=== PATIENT | female | born 1935 | race Caucasian/White ===

== ENCOUNTER 2022-03-16 13:19 | Outpatient (RCR) | payer MEDICARE, OTHER, SELFPAY ==
--- OUTSIDE RECORDS SUMMARY | 2022-02-20 11:09 | XMS_ITS | Continuity of Care Document ---
:1935 Author Care Team Providers Name Role Phone MD Johnson Laguna Admitting Physician DO Mandeep A Primary Care Physician Allergies, Adverse Reactions, Alerts Allergen Type Severity Reaction Last Updated Verified Status Codeine Allergy Unknown June Yes Active 2019 Doxycycline Allergy Unknown June Yes Active 2019 Hydromorphone Allergy Unknown June Yes Active 2019 Imipramine Allergy Unknown June Yes Active 2019 Morphine Allergy Unknown June Yes Active 2019 Penicillin v Allergy Unknown June Yes Active 2019 Calcitriol Allergy Unknown June Yes Active 2019 Beta-carotene Allergy Unknown June Yes Active 2019 Gabapentin Allergy Unknown June Yes Active 2019 Levofloxacin Allergy Unknown June Yes Active 2019 Infliximab Allergy Unknown June Yes Active 2019 Tocilizumab Allergy Unknown June Yes Active 2019 IMIPRAMINE HCL Allergy Unknown June No Activ e 2020 SULFA Allergy Unknown June No Active (SULFONAMIDE 2020 ANTIBIOTICS) Social History Smoking Status Status Start Date End Date Date of Observat ion Tobacco smoking August 13 021 consumption unknown 8:40am (finding) Observation Status Observation Response Date of Response History provided by Patient July 08, 2021 5 :00am Family Member July 08, 2021 5 :00am Where do you live? Own home/apt July 08, 2021 5 :00am With whom do you live? Adult children July 08 5:00am Additional Data Assigned Sex Female Problems Active Problems Medical Problem Onset Date Status Weakness Active Poor appetite Active Myelodysplasia (myelodysplastic Active syndrome) Neutropenic fever Active History of pulmonary embolism Active Rheumatoid arthritis Active On prednisone therapy Active Hyponatremia Active Hiatal hernia Active Elevated blood pressure reading Active Anemia Active Cough Active Medications Medication Status Dose Units Route Directions Qty Days Start End Ins tructions Date Date Acetaminophe Active 650 MG PO Three Times n A Day Bisacodyl Active 5 MG PO Daily as (Ducodyl) 5 needed Mg TAB Fluticasone Active 2 SPRAY EACH Daily 1 Propionate NOSTR (Nasal) (Flonase Allergy Relief) 50 Mcg/Act SPR Mirtazapine Active 7.5 MG PO Bedtime 30 Multiple Active 1 TABLET PO Daily December Vitamins W/ 24, Minerals 2021 (Centrum 2:07pm Silver) TAB Prednisone Active 2 MG PO Daily Psyllium Active 1 TBS PO Daily as (Metamucil) needed 28.3 % POW Rivaroxaban Active 10 MG PO Daily (Xarelto) 10 Mg TAB Venlafaxine Active 150 MG PO Daily Hcl (Effexor Xr) 75 Mg CAP Acetaminophe Disconti 325-65 MG PO Every 4 Septem NO MORE THAN n (Tylenol) nued 0 Hours as gerry 4000 MG/DAY 325 Mg TAB needed 2020 1:29pm Acetaminophe Disconti 500-10 MG PO Every 6 March NO MORE THAN n (Tylenol nued 00 Hours as 3999 M G/DAY Extra needed 2020 Strength) 12:08p 500 Mg TAB m Aspirin Disconti 81 MG PO Daily October nued , 2020 2:15pm 11:24a m Cholecalcife Disconti Unknow PO Daily December rol (Vitamin nued n Dose 24, D) Unknown 2021 Strength TAB 2:06pm Cholecalcife Disconti 400 UNIT PO Daily Septem On hold per rol (Vitamin nued gerry patient D 400) 400 , Unit CHW 2020 1:29pm Ciprofloxaci Disconti 250 MG PO Twice A Day 180 90 Decembe Ju ly n Hcl nued r , 2019 4:06pm 2:18pm Ciprofloxaci Disconti 250 MG PO Twice A Day Dece mb n Hcl nued er 2019 10:05a m Ciprofloxaci Disconti 250 MG PO Twice A Day 180 90 Decembe De cemb n Hcl nued r , er 2019 10, 3:53pm 2019 4:06pm Lenalidomide Disconti 2.5 MG PO Daily December plea se take (Revlimid) 5 nued , , 21 days out Mg CAP 2020 2020 of 28 days 11:24am 3:06pm Lenalidomide Disconti 5 MG PO Daily October plea se take (Revlimid) 5 nued , , 21 days out Mg CAP 2020 2020 of 28 days 2:15pm 11:24a m Loperamide Disconti 2 MG PO December Hcl nued , (Imodium) 2 2020 Mg CAP 11:44a m Magic Disconti 5 ML PO Four Times November SWISH AND SPIT Mouthwash nued Daily as , december COM POUND IF FIRST PRODUCT NOT COVERED (Lidocaine/B needed 2020, enadryl/Maal 1:13pm 2020 ox) 1:29pm (First-Mouth wash Blm) Blm LAMINE Metoprolol Disconti 25 MG PO Daily March ho ld Succinate nued , (Toprol Xl) 2020 25 Mg TABCR 12:08p m Mirtazapine Disconti 7.5 MG PO Bedtime Novemb (Remeron) 15 nued er Mg TAB 2019 12:47p m Ondansetron Disconti 4 MG PO Every 6 October Hcl nued Hours as r , (Ondansetron needed 2020 2021 Odt) 4 Mg 10:28am 1:34pm TAB Ondansetron Disconti 8 MG PO Three Times 26 November Hcl nued A Day as , (Ondansetron needed 2021 Odt) 8 Mg 1:34pm TAB Oyster Shell Disconti 500 MG PO Daily On hold (Calcium) nued gerry 500 Mg TAB 2020 1:29pm Potassium Disconti 20 MEQ PO Daily With 30 Novembe Januar nued Am Meal r 12th, y 2020, 10:28am 2021 2:02pm Probiotic Disconti 1 CAP PO Daily Decemb Product nued er (Probiotic) 2019 10:05a m Tramadol Hcl Disconti 50 MG PO Every 6 30 Decemb nued Hours as er needed 2019 2:12pm Tramadol Hcl Disconti 50-100 MG PO Q6h Prn Novemb MAX 400 (Ultram) 50 nued er MG/DAY Mg TAB 2019 12:47p m Relevant Diagnostic Tests and/or Laboratory Data Laboratory Results Test Date/Time Result Interpretation Reference Result Comment Performing Range Site White Blood February 16, 1.74 5.00-10.00 [facility] Count 2021 [address] [facility] 1:04pm [place] [address] Red Blood February 16, 3.17 3.90-5.03 [facility] Count 2021 [address] [facility] 1:04pm [place] [address] Hemoglobin February 16, 9.9 12.0-15.5 [facility] 2021 [address] [facility] 1:04pm [place] [address] Hematocrit February 16, 31.0 34.9-44.5 [facility] 2021 [address] [facility] 1:04pm [place] [address] Mean February 16, 98 82-98 [facility] Corpuscular 2021 1999 [facility] Volume 1:04pm [place] [address] Mean February 16, 31 27-34 [facility] Corpuscular 2021 [address] [facility] Hemoglobin 1:04pm [place] [address] Mean February 16, 32 32-36 [facility] Corpuscular 2021 [address] [facility] Hemoglobin 1:04pm [place] [address] Concent Platelet Count February 16, 244 150-450 [facility] 2021 [address] [facility] 1:04pm [place] [address] RDW February 16, 22.5 11.5-15.3 [facility] Coefficient of 2021 [address] [facility] Variation 1:04pm [place] [address] Neutrophils February 16, 14.4 50.0-70.0 [facility] (%) (Auto) 2021 [address] [facility] 1:04pm [place] [address] Lymphocytes February 16, 64.4 25.0-45.0 [facility] (%) (Auto) 2021 [address] [facility] 1:04pm [facility] [address] Monocytes (%) February 16, 16.1 0.00-11.0 [facility] (Auto) 2021 [address] [facility] 1:04pm [place] [address] Eosinophils February 16, 1.7 0.0-7.0 [facility] (%) (Auto) 2021 [address] [facility] 1:04pm [place] [address] Basophils (%) February 16, 3.4 0.0-3.0 [facility] (Auto) 2021 [address] [facility] 1:04pm [place] [address] Immature February 16, 0.0 [facility] Granulocyte % 2021 1999 [facility] (Auto) 1:04pm [place] [address] Neutrophils # February 16, 0.25 1.70-7.00 [facility] (Auto) 2021 [address] [facility] 1:04pm [place] [address] Lymphocytes # February 16, 1.12 0.90-2.90 [facility] (Auto) 2021 [address] [facility] 1:04pm [place] [address] Monocytes # February 16, 0.28 0.30-0.90 [facility] (Auto) 2021 [address] [facility] 1:04pm [place] [address] Eosinophils # February 16, 0.03 0.00-0.50 [facility] (Auto) 2021 [address] [facility] 1:04pm [place] [address] Basophils # February 16, 0.06 0.00-0.20 [facility] (Auto) 2021 [address] [facility] 1:04pm [place] [address] Immature February 16, 0.00 [facility] Granulocyte # 2021 [address] [facility] (Auto) 1:04pm [place] [address] Urine Color Kristina YELLOW YELLOW [facility] 2021 [facility] 2:18pm [place] [address] Urine Kristina CLEAR CLEAR [facility] Appearance 2021 [facility] 2:18pm [place] [address] Urine Glucose Kristina NEGATIVE NEGATIVE [facility] (UA) 2021 [facility] 2:18pm [place] [address] Urine Kristina NEGATIVE NEGATIVE [facility] Bilirubin 2021 [facility] 2:18pm [place] [address] Urine Ketones August NEGATIVE NEGATIVE [facility] 2021 [facility] 2:18pm [place] [address] Urine Specific Kristina 1.025 1.000-1.03 [facility] [place] 2021 0 [address] [facility] 2:18pm [place] [address] Urine pH August 6.5 5.0 - 8.5 [facility] 2021 [facility] 2:18pm [place] [address] Urine Protein Kristina NEGATIVE NEGATIVE [facility] 2021 [facility] 2:18pm [place] [address] Urine Kristina 1.0 0.2 [facility] Urobilinogen 2021 [facility] 2:18pm [place] [address] Urine Nitrite Kristina NEGATIVE NEGATIVE [facility] 2021 [facility] 2:18pm [place] [address] Urine Blood Kristina Trace-int NEGATIVE [facility] 2021 [facility] 2:18pm [place] [address] Urine Kristina NEGATIVE NEGATIVE [facility] Leukocyte 2021 [facility] Esterase 2:18pm [place] [address] Urine WBC Kristina 2-5 0-2 [facility] 2021 [facility] 2:18pm [place] [address] Urine RBC August 2-5 0-2 [facility] 2021 [facility] 2:18pm [place] [address] Urine Other Kristina 0 0 [facility] Casts 2021 [facility] 2:18pm [place] [address] Urine Other Kristina 0 0 [facility] Crystals 2021 [facility] 2:18pm [place] [address] Urine Squamous Kristina 0 0-FEW [facility] Epithelial 2021 [facility] Cells 2:18pm [place] [address] Urine Bacteria Kristina RARE 0-FEW [facility] 2021 [facility] 2:18pm [place] [address] Urine Mucus Kristina 0 0 [facility] 2021 [facility] 2:18pm [place] [address] Urine Kristina 0 0 [facility] Amorphous 2021 [facility] Sediment 2:18pm [place] [address] Urine Other Kristina 0 [facility] Sediment 2021 [facility] 2:18pm [place] [address] Random Glucose February 02, 120 60-115 [facility] 2021 [address] [facility] 1:35pm [place] [address] Blood Urea February 02, 22 7-30 [facility] Nitrogen 2021 [address] [facility] 1:35pm [place] [address] Creatinine February 02, 0.8 0.5-1.5 [facility] 2021 [address] [facility] 1:35pm [place] [address] Estimated February 02, Patient [facility] Creatinine 2021 height/weight [address] [facility] Clearance 1:35pm [place] [address] available Sodium Level February 02, 138 135-149 [facility] 2021 [address] [facility] 1:35pm [facility] [address] Potassium February 02, 4.3 3.6-5.1 [facility] Level 2021 [address] [facility] 1:35pm [place] [address] Chloride Level February 02, 102 96-114 [facility] 2021 [address] [facility] 1:35pm [facility] [address] Carbon Dioxide February 02, 31 20-32 [facility] Level 2021 [address] [facility] 1:35pm [facility] [address] Calcium Level February 02, 8.5 8.4-10.6 [facility] 2021 [address] [facility] 1:35pm [facility] [address] Total Protein February 02, 7.1 6.0-8.3 The use of [facility] 2021 Eltrombopag, a [address] [facility] 1:35pm [place] [address] stimulant used to treat thrombocytopenia and aplastic anemia, interferes with this measurement of total protein. A 5% bias has been observed. Albumin February 02, 3.8 3.3-5.0 [facility] 2021 [address] [facility] 1:35pm [facility] [address] Total February 02, 1.0 0.1-1.5 [facility] Bilirubin 2021 [address] [facility] 1:35pm [place] [address] Aspartate February 02 12-35 [facility] Amino Transf 2021 [address] [facility] (AST/SGOT) 1:35pm [place] [address] Alanine February 02 4-35 [facility] Aminotransfera 2021 [address] [facility] se (ALT/SGPT) 1:35pm [facility] [place] [address] Alkaline February 02 82 40-150 [facility] Phosphatase 2021 [address] [facility] 1:35pm [facility] [address] Vitamin D January 19 30-80 Deficient....... [facility] 25-Hydroxy 2021 .....less than [address] [facility] 12:58pm 20 [facility] [address] ng/mLInsufficien t..........20-29 ng/mLSufficient. .............30- 100 ng/mLPotential Toxicity....grea ter than 100 ng/mL Microbiology Results Procedure Source Result Collection Result Result Performin g Date/Time Date/Time Comment Site Urine Culture URINE,JERAMIE < 50,000 September 15, September 17, [facility] N CATCH COL/ML MIXED 2021 2:18pm 2021 3:11pm 200 [address] [facility] GRAM [facility] [address] POSITIVE ALICIA ISOLATED URINE,JERAMIE NO FURTHER September 15, September 17, [facility] N CATCH WORKUP 2021 2:18pm 2021 3:11pm [address] [facility] [address] Advance Directives Advance Directive Response Recorded Date/Time Has patient completed a Yes August 13 8:40am Health Care Directive? Insurance Providers Guarantor Kourtney Reddy Address [facility] [address] Contact Info. Home Phone: Payer Policy Id Coverage Id Subscriber's Subscriber Effective Expi ration Name Id Date Date Medicare [id number] Kourtney Reddy [employer] [id number] Kourtney Reddy [facility] E Encounters Encounter Location(s) Arrival/Admit Date Discharge/Depart Date Provider(s) Registered [place] February 16, 2022 [facility] 7:12am Plan of Treatment Future Tests Future scheduled test information is unavailable Pending Tests Pending diagnostic test information is unavailable Future Visits Future appointment information is unavailable Referrals to Other Providers Reason for Referral Start Provider Provider Contact Provider Address Referral Date Information Kamla Kaufman Work Phone: RONIT DUNN [facility] DO [address] [facility] 5 [phone] Future Procedures Future procedure information is unavailable Future Medications Future medication information is unavailable Patient Instructions See Additional Instructions Acute Cough (ED) Hyponatremia (DC) Fever in Adults (AC) Myelodysplastic Syndromes (DC) Weakness (DC) Neutropenia (DC)
--- NOTE | 2022-03-13 17:52 | ONC.NURNOTE ---
Authorization: User: Katya Maysaúl Date: 08/05/21 10:42 Type: Eligibility Determination Note... Request received from [facility] for continued authorization of Epoetin Alpha [id number] and Filgrastim [id number]. Patient carries Medicare as primary insurance. Per CMS.gov no prior authorization is required for Epoetin Alpha and Filgrastim. Services are based on medical necessity and follows Medicare guidelines.
[2022-03-16 13:54] LABS: Basophils Percent Auto 2.8 % (0.0-3.0); Eosinophils Percent Auto 1.9 % (0.0-7.0); Hematocrit 30.3 % (33.0-51.0); Hemoglobin* 9.5 gm/dL (12.0-16.0); Lymphocytes Percent Auto 59.3 % (20-44); Mean Corpuscular HGB Conc 31 gm/dL (32-36); Mean Corpuscular Hemoglobin 31 pg (26-34); Mean Corpuscular Volume 98 fL (80-100); Monocytes Percent Auto 15.9 % (0.0-11.0); Neutrophils Percent Auto 20.1 % (42.0-72.0); Platelet Count* 230 K/uL (140-440); RDW Coefficient of Variation % 22.7 % (11.5-15.5); White Blood Count* 2.14 K/uL (4.50-11.00)
[2022-03-16 14:03] LABS: Slide Review Reflex No
[2022-03-16 14:13] LABS: Albumin* 3.6 g/dL (3.3-5.0); Chloride* 105 mmol/L (96-114)
[2022-03-16 14:14] LABS: Potassium* 4.1 mmol/L (3.6-5.1); Sodium* 138 mmol/L (135-149)
[2022-03-16 14:16] LABS: Alkaline Phosphatase* 84 U/L (40-150); Aspartate Amino Transferase* 32 U/L (12-35); Blood Urea Nitrogen* 19 mg/dL (7-30); Carbon Dioxide* 30 mmol/L (20-32); Creatinine* 0.7 mg/dL (0.5-1.5); Est. Creatinine Clearance* 31.94; Estimated Glomerular Filt Rate 84 ml/min; Total Protein* 6.9 g/dL (6.0-8.3)
[2022-03-16 14:17] LABS: Alanine Aminotransferase* 19 U/L (4-35); Calcium* 8.4 mg/dL (8.4-10.6); Glucose* 118 mg/dL (60-115)
[2022-03-16] MEDS: EPOETIN ALFA 20,000 UNIT/ML VIAL 60000 UNIT SUBCUT (15:32)
[2022-03-16] MEDS: TBO-FILGRASTIM 300 MCG/0.5 ML INJ 120 MCG SUBCUT (15:32)
== END 2022-03-29 23:59 | disposition home or self-care (01) ==
LOC: CCIC 13:19
PROVIDERS: Clinical Nurse Specialist; PCP Family Medicine; Visit Provider Internal Medicine Medical Oncology
DX: D46.9 Myelodysplastic syndrome, unspecified (principal); D64.9 Anemia, unspecified
CPT/HCPCS: 36415; 80053; 85025; 96372; 96374; 99212; 99215; J0885; J1447

== ENCOUNTER 2022-05-25 11:00 | Outpatient (RCR) | payer MEDICARE, OTHER, SELFPAY ==
[2022-03-30 13:09] LABS: Basophils Percent Auto 2.8 % (0.0-3.0); Eosinophils Percent Auto 2.2 % (0.0-7.0); Hematocrit 32.3 % (33.0-51.0); Hemoglobin* 10.3 gm/dL (12.0-16.0); Lymphocytes Percent Auto 57.5 % (20-44); Mean Corpuscular HGB Conc 32 gm/dL (32-36); Mean Corpuscular Hemoglobin 31 pg (26-34); Mean Corpuscular Volume 96 fL (80-100); Monocytes Percent Auto 15.1 % (0.0-11.0); Neutrophils Percent Auto 22.4 % (42.0-72.0); Platelet Count* 216 K/uL (140-440); RDW Coefficient of Variation % 22.2 % (11.5-15.5); Red Blood Count 3.36 m/uL (4.00-5.20)
[2022-03-30 13:11] LABS: Slide Review Reflex No; White Blood Count* 1.79 K/uL (4.50-11.00)
[2022-03-30 13:51] VITALS: BP 127/87; PULSE 83; RESP 16; TEMP 36.3; O2SAT 96
[2022-03-30] MEDS: TBO-FILGRASTIM 300 MCG/0.5 ML INJ 120 MCG SUBCUT (13:52)
--- NOTE | 2022-04-13 09:27 | ONC.NURNOTE ---
Patient's son, Jarred called office to state that patient tested positive yesterday. She started with a cough on 04/10/2022. She was seen in [facility] and started on paclovid. Patient had a fever of 100.3 last night. No infusions were ordered, lyric writer asked son is patient would want these done through [facility] ([place]) if she qualifies per [facility], he would prefer her to be treated a [facility] so he was told to contact primary care. Patient would need to isolate from [facility] for minimum of 10 days, which would put her at 04/20/2022 back in clinic. Will talk to oncologist to see if would like to have patient's labs checked sooner (will not be able to inject patient with granix and epogen).
[2022-04-30 12:02] LABS: Basophils Percent Auto 1.2 % (0.0-3.0); Eosinophils Percent Auto 0.8 % (0.0-7.0); Hematocrit 25.6 % (33.0-51.0); Hemoglobin* 8.2 gm/dL (12.0-16.0); Lymphocytes Percent Auto 41.4 % (20-44); Mean Corpuscular HGB Conc 32 gm/dL (32-36); Mean Corpuscular Hemoglobin 31 pg (26-34); Mean Corpuscular Volume 96 fL (80-100); Monocytes Percent Auto 11.6 % (0.0-11.0); Platelet Count* 340 K/uL (140-440); RDW Coefficient of Variation % 22.9 % (11.5-15.5); Red Blood Count 2.68 m/uL (4.00-5.20); White Blood Count* 2.49 K/uL (4.50-11.00)
[2022-04-30 12:03] LABS: Slide Review Reflex No
[2022-04-30 12:15] VITALS: BP 115/67; PULSE 83; RESP 16; TEMP 36.4; O2SAT 98
[2022-04-30] MEDS: EPOETIN ALFA 20,000 UNIT/ML VIAL 60000 UNIT SUBCUT (12:28)
[2022-04-30 16:34] LABS: Albumin* 3.7 g/dL (3.3-5.0); Chloride* 103 mmol/L (96-114); Sodium* 138 mmol/L (135-149)
[2022-04-30 16:35] LABS: Potassium* 4.3 mmol/L (3.6-5.1)
[2022-04-30 16:37] LABS: Alanine Aminotransferase* 24 U/L (4-35); Alkaline Phosphatase* 88 U/L (40-150); Aspartate Amino Transferase* 28 U/L (12-35); Bilirubin Total* 0.8 mg/dL (0.1-1.5); Blood Urea Nitrogen* 21 mg/dL (7-30); Carbon Dioxide* 28 mmol/L (20-32); Creatinine* 0.9 mg/dL (0.5-1.5); Estimated Glomerular Filt Rate 62 ml/min; Total Protein* 7.1 g/dL (6.0-8.3)
[2022-04-30 16:38] LABS: Calcium* 8.7 mg/dL (8.4-10.6); Glucose* 82 mg/dL (60-115)
[2022-05-11 12:44] LABS: Eosinophils Percent Auto 1.2 % (0.0-7.0); Hematocrit 29.2 % (33.0-51.0); Hemoglobin* 9.2 gm/dL (12.0-16.0); Lymphocytes Percent Auto 51.8 % (20-44); Mean Corpuscular HGB Conc 32 gm/dL (32-36); Mean Corpuscular Hemoglobin 31 pg (26-34); Mean Corpuscular Volume 100 fL (80-100); Platelet Count* 321 K/uL (140-440); Red Blood Count 2.93 m/uL (4.00-5.20); Slide Review Reflex No; White Blood Count* 2.53 K/uL (4.50-11.00)
[2022-05-25 13:33] LABS: Basophils Percent Auto 2.3 % (0.0-3.0); Eosinophils Percent Auto 1.3 % (0.0-7.0); Hematocrit 28.2 % (33.0-51.0); Lymphocytes Percent Auto 46.5 % (20-44); Mean Corpuscular HGB Conc 32 gm/dL (32-36); Mean Corpuscular Hemoglobin 32 pg (26-34); Mean Corpuscular Volume 100 fL (80-100); Monocytes Percent Auto 10.6 % (0.0-11.0); Neutrophils Percent Auto 39.3 % (42.0-72.0); Platelet Count* 345 K/uL (140-440); RDW Coefficient of Variation % 24.2 % (11.5-15.5); Red Blood Count 2.82 m/uL (4.00-5.20); White Blood Count* 3.03 K/uL (4.50-11.00)
[2022-05-25 13:37] LABS: Slide Review Reflex No
[2022-05-25 13:54] VITALS: BP 131/78; PULSE 84; RESP 16; TEMP 37; O2SAT 98
[2022-05-25] MEDS: EPOETIN ALFA 20,000 UNIT/ML VIAL 60000 UNIT SUBCUT (14:23)
--- NOTE | 2022-05-28 12:19 | ONC.NURNOTE ---
Pt transferring care to [facility]. Records faxed to [phone] per patient request.
== END 2022-09-26 23:59 | disposition home or self-care (01) ==
LOC: CCIC 11:00
PROVIDERS: Clinical Nurse Specialist; PCP Family Medicine; Visit Provider Internal Medicine Medical Oncology
DX: D46.9 Myelodysplastic syndrome, unspecified (principal); D64.9 Anemia, unspecified
CPT/HCPCS: 36415; 80053; 85025; 96372; 99212; 99214; 99215; J0885; J1447